=== PATIENT | male | born 1990 | race Caucasian/White ===

== ENCOUNTER 2018-11-12 22:10 | Emergency (ER) | payer OTHER, SELFPAY ==
[2018-11-12 22:10] VITALS: BP 135/75; PULSE 107; RESP 18; TEMP 36.8; O2SAT 98; BMI 33.4
--- NOTE | 2018-11-12 23:46 | ED.RN ---
CALLED CRISIS TO REQUEST THE PATIENT INTAKE REPRESENTATIVE CALL IN TO SPEAK TO DR DALTON
--- NOTE | 2018-11-12 23:48 | ED.DCSUM_ITS ---
- ER Visit Summary Date of Service: 11/12/18 Chief Complaint: Anxious/panic attack and paranoia History of Present Illness: The patient is a 28 M who is a schizophrenic. He recently moved here from [place]. He has a psychiatrist in [place] but has not found physicians here yet. He states that today he began to feel anxious like he was having a panic attack and had some tightness in his chest. He denies any suicidal ideations or homicidal ideations. He states he does feel safe at home. However he does not feel safe at work. He states he has delusions that people want to hurt him. However he shows good insight that these are delusions stating that he has had experience with this and recognizes that it may not be true. Physical Examination: Heart rate 107 vitals otherwise normal Resting comfortably Blunt affect Denies suicidal or homicidal ideation, shows good insight, does have some paranoid ideation Heart regular rhythm slightly tachycardic Lungs are clear Abdomen soft Test Results: Not indicated Emergency Department Course and Treatment: I do not feel the patient meets criteria for involuntary hospitalization at this time. However he does not have any mental health care here. We will contact crisis to arrange for follow-up. Patient discharged. Treatment Plan: [] Disposition: Discharge Impression: Schizophrenia This note was generated with [employer] dictation software. It may contain incorrect words, spelling, and punctuation that were not noted in review of the chart prior to signing ED Disposition - Plan for ED Patient: Referrals: Care Physician,No Primary [Primary Care Provider] -
--- NOTE | 2018-11-12 23:52 | ED.DEP ---
ED Disposition - Plan for ED Patient: Instructions: SCHIZOPHRENIA, General Referrals: Care Physician,No Primary [Primary Care Provider] - Counseling,Center [GROUP OF PHYSICIANS] -
== END 2018-11-13 00:38 | disposition home or self-care (01) ==
PROVIDERS: Emergency Provider Emergency Medicine
DX: F20.9 Schizophrenia, unspecified (principal); K21.9 Gastro-esophageal reflux disease without esophagitis; E03.9 Hypothyroidism, unspecified; Z79.899 Other long term (current) drug therapy
CPT/HCPCS: 99281

== ENCOUNTER 2020-06-13 13:54 | Emergency (ER) | payer OTHER, SELFPAY ==
[2020-06-13 13:54] VITALS: BP 145/88; PULSE 83; RESP 16; TEMP 36.8; O2SAT 97; BMI 33.3
--- NOTE | 2020-06-13 14:06 | CM.ED ---
Social Work Consult: Mental Health Telephone call from Marilynn Canas. Marilynn reports to have spoke with patient briefly in the community and that PD was to call Marilynn back prior to patient being brought to the ED as per Marilynn patient has a baseline of having suicidal thoughts and we can typically safety plan. Plan is for crisis to complete assessment as crisis is familiar with patient. Medical team updated on above. Nan ROGERS, CARLI
--- NOTE | 2020-06-13 14:18 | ED.VISSUMM ---
- ER Visit Summary Date of Service: 06/13/20 Chief Complaint: [Depression and suicidal ideation] History of Present Illness: The patient is a 29 M [presents to the emergency department with police escort. Patient had apparently called the crisis center and then the crisis was unable to get a hold of him again so they called a welfare check to the residence and police was supposed to call the crisis center once they located the patient however police instead brought him to the emergency department. Crisis knows this patient well and apparently deal with them quite frequently. Patient does state that this morning he has had a hard time getting going and was having thoughts that he would be better off if he was not alive any longer. Patient does not have a plan on harming himself. His last psychiatric admission was summer 2018. Patient denies auditory or visual hallucinations. He denies any homicidal ideations. Patient has been compliant with his medications. He does have history of depression, anxiety, and schizoaffective disorder.] Physical Examination: [HEENT-PERRLA, EOMI. Cranial nerves II through XII grossly intact. TMs clear. Mucous membranes moist. No adenopathy. Cardiovascular-regular rate and rhythm without murmur or ectopy Lungs-clear to auscultation, chest wall stable without crepitus or subcu emphysema Abdomen-normoactive bowel sounds, soft, nontender, no rebound or rigidity, no peritoneal signs. Extremities-intact ?4, normal range of motion, normal pulses, atraumatic] Test Results: [None performed] Emergency Department Course and Treatment: [Patient was evaluated by crisis and it was determined that patient currently not acutely suicidal and is willing to contract for safety. He is well-known to the counseling center. They will follow-up with him.] Treatment Plan: [Patient will follow up with counseling center and his psychiatrist.] Disposition: [Discharged] Impression: [Depression] This note was generated with [employer] dictation software. It may contain incorrect words, spelling, and punctuation that were not noted in review of the chart prior to signing ED Disposition - Plan for ED Patient: Referrals: Care Physician,No Primary [NON-STAFF] -
--- NOTE | 2020-06-13 14:32 | ED.RN ---
pt is on the phone with crisis. unable to complete assessment and health screening. dmitry, rn [id number]
--- NOTE | 2020-06-13 15:35 | ED.DEP ---
ED Disposition - Plan for ED Patient: Instructions: ED Depression Referrals: Care Physician,No Primary [NON-STAFF] - 3-5 Days Additional Instructions: Follow up with your psychiatrist
[2020-06-13 16:05] VITALS: BP 140/85; PULSE 88; RESP 14; O2SAT 99
== END 2020-06-13 16:07 | disposition home or self-care (01) ==
LOC: ED 15:31
PROVIDERS: Emergency Provider Emergency Medicine; PCP Family Medicine
DX: F32.9 Major depressive disorder, single episode, unspecified (principal); F25.9 Schizoaffective disorder, unspecified; F41.9 Anxiety disorder, unspecified; E03.9 Hypothyroidism, unspecified; Z79.899 Other long term (current) drug therapy; Z72.0 Tobacco use
CPT/HCPCS: 99282

== ENCOUNTER 2020-08-28 22:16 | Emergency (ER) | payer OTHER, SELFPAY ==
[2020-08-28 22:19] VITALS: BP 139/86; PULSE 100; RESP 20; TEMP 36; O2SAT 99; BMI 32.8
--- NOTE | 2020-08-28 22:20 | ED.RN ---
RN CALLED FOR EKG, NO OLD EKGS IN MUSE
[2020-08-28 22:28] VITALS: PULSE 101; RESP 20; O2SAT 97
--- NOTE | 2020-08-28 22:38 | CT_ITS ---
EXAM: CT ABDOMEN AND PELVIS WITH INTRAVENOUS CONTRAST : 1990 CLINICAL INDICATION: Diffuse abdominal pain TECHNIQUE: Helically acquired images were obtained of the abdomen and pelvis with intravenous contrast. This CT exam was performed using one or more of the following dose reduction techniques: automated exposure control, adjustment of the mA and/or kV according to patient size, and/or use of iterative reconstruction technique. This report was created using [employer] report generation technology. CONTRAST: IV 100mL Isovue-300 COMPARISON: None. FINDINGS: LOWER THORAX: Unremarkable. Lung bases are clear. No cardiomegaly. No significant pericardial effusion. ABDOMEN: LIVER: Unremarkable. Homogeneous. No focal mass. GALLBLADDER AND BILE DUCTS: Unremarkable. No calcified gallstones. No gallbladder distention or wall edema. No intra- or extrahepatic biliary ductal dilation. PANCREAS: Unremarkable. No focal cystic or solid mass. SPLEEN: Unremarkable. Normal size without focal cystic or solid mass. ADRENALS: Unremarkable. No nodules. KIDNEYS AND URETERS: Unremarkable. Normal renal size and position. No hydronephrosis. STOMACH AND BOWEL: There is moderate stool seen throughout the colon may represent constipation. No stomach or bowel distention. No focal inflammatory change. PELVIS: APPENDIX: No evidence of acute appendicitis. BLADDER: Unremarkable. REPRODUCTIVE: Unremarkable as visualized. No mass. ABDOMEN and PELVIS: INTRAPERITONEAL SPACE: Unremarkable. No ascites or other fluid collection. No free air. BONES/JOINTS: Unremarkable. No suspicious lytic or blastic abnormality. SOFT TISSUES: Unremarkable. No discrete abdominal or pelvic wall hernia. VASCULATURE: Unremarkable. Abdominal aorta is non-dilated. LYMPH NODES: Unremarkable. No enlarged lymph nodes. CT/Abdomen/Pelvis W IV Cont ONLY IMPRESSION: Moderate stool throughout the colon may represent constipation. No other abnormalities identified. Individualized dose optimization techniques were used for this CT. at 0113 Reported and signed by: Jan Zhang MD Electronically Signed: Jan Zhang MD at 1:11 EDT Tel , Service support ,
--- NOTE | 2020-08-28 22:44 | EDS_ITS ---
HPI History of Present Illness Chief Complaint: Chest Pain Narrative Narrative: Patient is a 29-year-old male with a past medical history of schizoaffective disorder, anxiety who presents to the emergency department for abdominal pain and constipation. He states that this is been ongoing issue over the past 2 to 3 weeks. He was discharged from [facility] yesterday. He is currently residing at the [facility]. He currently rates his abdominal pain is a 5 out of 10. His whole entire abdomen hurts. No one spot hurts worse than another. No radiation of the pain into his back, chest. He initially told the nurse that he was having chest pain so an EKG was performed. Patient denying any chest pain to myself. Denies any shortness of breath. No fevers or chills. He states he was nauseous earlier today but never vomited. He states he is straining to have bowel movements. He is having some bright red blood with the stool. He was placed on MiraLAX and has been compliant with this. No previous abdominal surgeries. Patient otherwise does not know aggravating or relieving factors to his pain. [facility] Medical History (Updated 08/29/20 @ 01:[address] Dino Hubbard, ) Anxiety Depression Schizoaffective disorder Home Medications clonazepam 0.5 mg PO BID 11/12/18 [History Last Taken Unknown] ergocalciferol (vitamin D2) 50,000 unit PO QWEEK 11/12/18 [History Last Taken Unknown] levothyroxine 25 mcg PO DAILY 11/12/18 [History Last Taken Unknown] omeprazole magnesium 20 mg PO DAILY 11/12/18 [History Last Taken Unknown] prazosin 2 mg PO QHS 11/12/18 [History Last Taken Unknown] sertraline 200 mg PO DAILY 11/12/18 [History Last Taken Unknown] ziprasidone HCl 80 mg PO TID 11/12/18 [History Last Taken Unknown] hydroxyzine pamoate 50 mg PO TID PRN PRN 06/13/20 [History Last Taken Unknown] docusate sodium [Colace] 100 mg PO BID #20 cap 08/29/20 [Rx Last Taken Unknown] sodium phosphates [Fleet Enema] 118 ml VT DAILY 1 Days #133 ml 08/29/20 [Rx Last Taken Unknown] Allergy/AdvReac Type Severity Reaction Status Date / Time No Known Allergies Allergy Verified 08/28/20 22:18 Social History Smoking Status: Never smoker ROS ROS ED Constitutional Constitutional ED: Denies chills or fever(s) Eyes Eyes: Denies change in vision ENT ENT ED: Denies epistaxis or rhinorrhea Cardiovascular Cardiovascular: Denies chest pain or palpitations Respiratory/Chest Respiratory/Chest: Denies cough, dyspnea or dyspnea on exertion Gastrointestinal Gastrointestinal: Reports abdominal pain, constipation and nausea; Denies d iarrhea, melena or vomiting Genitourinary Genitourinary ED: Denies dysuria, hematuria or urinary frequency Musculoskeletal Musculoskeletal: Denies back pain or neck pain Integumentary Denies rash Neurologic Neurologic: Denies dizziness, headache(s) or weakness EXAM Physical Exam Const Vital Signs: 08/28/20 22:19 08/28/20 22:22 08/28/20 22:28 Temperature 96.8 F L Temperature Source Temporal Pulse Rate 100 101 H Respiratory Rate 20 H 20 H Respiratory Effort Normal Non-Labored Respiratory Pattern Normal Blood Pressure 139/86 H Blood Pressure Mean 103 Pulse Ox 99 97 Oxygen Delivery Method Room Air Room Air 08/29/20 00:14 08/29/20 01:02 08/29/20 01:40 Temperature Temperature Source Pulse Rate 86 90 93 Respiratory Rate 16 22 H 18 Respiratory Effort Respiratory Pattern Blood Pressure 120/67 121/80 H 135/97 H Blood Pressure Mean 84 93 Pulse Ox 96 97 96 Oxygen Delivery Method Room Air Room Air Positive well nourished and well developed General Appearance ED: well developed and NAD HEENT Reports normocephalic, head/scalp atraumatic and moist mucous membranes Eyes PERRL and EOMs intact bilaterally Neck no lymphadenopathy and supple General: Negative for tenderness Chest Wall inspection of chest normal Resp normal respiratory effort and clear to auscultation bilaterally Auscultation: Negative for rales, rhonchi or wheezes Cardio regular rate, regular rhythm and no murmurs GI normal to inspection, nondistended, normoactive bowel sounds Palpation: soft and tender other (Diffuse, patient has no grimacing with deep palpation.); Negative for guarding or rebound tenderness present Back/Spine no CVA tenderness Extremity normal to inspection General Extremety ED: Negative for edema or tenderness General Extremity: Negative for edema Neuro oriented x3, CN's II-XII intact bilaterally and no sensory deficits noted Sensorium / Orientation: alert Motor Exam: strength 5/5 throughout Psych Appearance: other Flat affect Skin no rashes or lesions noted MDM MDM MDM Narrative Medical decision making narrative: Patient presents to the ED for diffuse abdominal pain and constipation. Patient has been taking MiraLAX which has not been giving him significant relief. Vital signs are within normal limits upon arrival to the ED. He is afebrile. He has a benign abdominal exam with mild tenderness diffusely. Given his prolonged symptoms we will check basic lab work and imaging. Patient's lab work did not reveal any significant acute abnormality. His troponin is within normal limits. He does not have an elevated white blood cell count. Liver enzymes within normal limits. CT scan did show constipation but no obvious obstruction. I did offer disimpaction but patient would prefer to do a enema at home. We'll write a prescription for this. I will add Colace to take along with his MiraLAX as well. At this time patient is stable for discharge. Again he has been asymptomatic without having any chest pain or shortness of breath. I believe his EKG was showing J-point elevation. Lab Data Labs: Laboratory Results - last 24 hr 08/28/20 08/28/20 08/29/20 22:22 22:22 01:15 WBC 5.5 RBC 5.45 Hgb 15.0 Hct 45.1 MCV 82.8 MCH 27.5 MCHC 33.3 RDW Std Deviation 50.4 H RDW Coeff of Lissette 16.8 H Plt Count 185 MPV 9.6 Immature Gran % (Auto) 0.200 Neut % (Auto) 65.5 Lymph % (Auto) 23.3 Peach % (Auto) 9.3 Eos % (Auto) 1.3 Baso % (Auto) 0.4 Absolute Neuts (auto) 3.6 Absolute Lymphs (auto) 1.28 Nucleated RBC % 0 Sodium 140 Potassium 3.6 Chloride 108 H Carbon Dioxide 26.0 Anion Gap 6 BUN 11 Creatinine 0.95 Estim Creat Clear Calc 113.00 Est GFR (MDRD) Af Amer 122 Est GFR (MDRD) Non-Af 101 BUN/Creatinine Ratio 11.6 Glucose 113 H Calcium 9.1 Total Bilirubin 0.30 AST 8 L ALT 23 Alkaline Phosphatase 84 Troponin I < 0.015 Total Protein 7.2 Albumin 3.7 Globulin 3.5 Albumin/Globulin Ratio 1.1 Lipase 122 Urine Color Yellow Urine Clarity Clear Urine pH 6.5 Ur Specific [place] 1.015 Urine Protein 15 H Urine Glucose (UA) Normal Urine Ketones Negative Urine Occult Blood Negative Urine Nitrite Negative Urine Bilirubin Negative Urine Urobilinogen 1 H Ur Leukocyte Esterase Negative Urine RBC 0 SEEN Urine WBC 0 SEEN Ur Squamous Epith Cells 0 SEEN Urine Bacteria 0 SEEN Urine Mucus 0 SEEN Radiography Diagnostic Testing: Radiology Impression Abdomen/Pelvis CT 08/28/20 22:38 IMPRESSION: Moderate stool throughout the colon may represent constipation. No other abnormalities identified. Individualized dose optimization techniques were used for this CT. at 0113 Reported and signed by: Jan Zhang MD Electronically Signed: Jan Zhang MD at 1:11 EDT Tel , Service support , EKG Initial EKG: Attestation: I personally reviewed and interpreted this EKG as follows: Comments: Rate of 102 bpm and a sinus tachycardia. He does have some ST elevations in the inferior leads especially 2 and aVF. He has minimal ST elevation in V6. No reciprocal depressions. Patient is denying any chest pain at this time. Discharge Plan Triage Chief Complaint: Chest Pain Other Complaint: Nausea/Vomiting ED Provider: Dino Hubbard Dx/Rx/DC Orders Clinical Impression: Constipation, Abdominal pain Instructions: ED Constipation (Adult) Prescriptions: New docusate sodium [Colace] 100 mg capsule 100 mg PO BID Qty: 20 RF: 0 Fleet Enema 19-7 gram/118 mL enema 118 ml VT DAILY 1 Days Qty: 133 RF: 1 No Action clonazepam 0.5 MG tablet 0.5 mg PO BID RF: 0 sertraline 100 MG tablet 200 mg PO DAILY RF: 0 levothyroxine 25 MCG tablet 25 mcg PO DAILY RF: 0 ergocalciferol (vitamin D2) 50,000 UNIT capsule 50,000 unit PO QWEEK RF: 0 ziprasidone HCl 60 MG capsule 80 mg PO TID RF: 0 prazosin 2 MG capsule 2 mg PO QHS RF: 0 omeprazole magnesium 20 MG tablet,delayed release (DR/EC) 20 mg PO DAILY RF: 0 hydroxyzine pamoate 25 MG capsule 50 mg PO TID PRN PRN (Reason: Anxiety) RF: 0 Primary Care Provider: Mark Hanna Referrals: Mark Hanna DO [Primary Care Provider] - 3-5 Days if not improving Disposition Disposition: Home, self care Discharge Date/Time: 08/29/20 01:43
[2020-08-28 22:48] LABS: Absolute Lymphocyte Count 1.28 X10^3/uL (0.83-4.51); Absolute Neutrophil Count 3.6 X10^3/uL (2.0-7.7); Basophil# 0.02 X10^3/uL; Basophil% 0.4 % (0-1); Eosinophil# 0.07 X10^3/uL; Eosinophils% 1.3 % (0-5); Hematocrit 45.1 % (40-54); Lymphocyte # 1.28 X10^3/ul (0.83-4.51); Lymphocyte % 23.3 % (19-41); Mean Corp Hgb Conc 33.3 g/dL (32-36); Mean Corpuscular Hgb 27.5 pg (27.0-32.0); Mean Corpuscular Volume 82.8 fL (80-94); Mean Platelet Vol. 9.6 fl (6.2-12.0); Monocyte# 0.51 X10^3/uL; Monocyte% 9.3 % (0-10); NRBC Flagged by Analyzer 0 % (0-5); Neutrophil % 65.5 % (47-70); Platelet Count 185 K/mm3 (150-450); RBC Distribution Width CV 16.8 % (11.6-14.6); RBC Distribution Width SD 50.4 fl (35.1-43.9); Red Blood Count 5.45 M/mm3 (4.6-6.2); White Blood Count 5.5 K/mm3 (4.4-11.0)
[2020-08-28 23:03] LABS: ALB/GLOB Ratio 1.1 RATIO (0.9-2.4); AST(SGOT) 8 U/L (15-37); Alanine Aminotransfer ALT/SGPT 23 U/L (16-61); Albumin, Serum 3.7 g/dL (3.2-5.0); Alkaline Phosphatase 84 U/L (45-117); Anion Gap 6 (5-15); BUN 11 mg/dL (7-18); BUN/Creat Ratio 11.6 RATIO (10-20); Calcium,Total 9.1 mg/dL (8.5-10.1); Chloride 108 mmol/L (98-107); Creatinine, Serum 0.95 mg/dL (0.70-1.30); EST Glomerular Filtration Rate 101 mL/min (>60); Est Glom Filt Rate - Afr Amer 122 mL/min (>60); Globulin 3.5 g/dL (2.2-4.2); Glucose 113 mg/dL (74-106); Lipase 122 U/L (73-393); Potassium 3.6 mmol/L (3.5-5.1); Protein, Total 7.2 g/dL (6.4-8.2); Sodium Level 140 mmol/L (136-145)
--- NOTE | 2020-08-28 23:19 | EKG12_ITS ---
Test Reason : CP/NV Blood Pressure : / mmHG Vent. Rate : 102 BPM Atrial Rate : 102 BPM P-R Int : 168 ms QRS Dur : 098 ms QT Int : 334 ms P-R-T Axes : 033 066 026 degrees QTc Int : [address]-Segment Abnormality:Consider Myocardial Injury or Pericarditis Abnormal ECG Confirmed by DWAIN LORENZ, HELEN ([id number]), editor greeting card NOEMI AUSTIN ([id number]) on 09/01/2020 10:51:52 AM Referred By: JAIMEE Confirmed By:HELEN PRAKASH MD
[2020-08-29 00:14] VITALS: BP 120/67; PULSE 86; RESP 16; O2SAT 96
[2020-08-29 01:02] VITALS: BP 121/80; PULSE 90; RESP 22; O2SAT 97
[2020-08-29 01:20] LABS: Bacteria 0 SEEN /hpf (None Seen); Color, Urine Yellow (Yellow); Glucose, Dipstick Normal (Normal); Ketone-Dipstick Negative (Negative); Leukocyte Esterase-Dipstick Negative /ul (Negative); Mucous, Urine 0 SEEN /hpf (<or=2+); Nitrite-Dipstick Negative (Negative); Occult Blood-Urine Negative /ul (Negative); Protein-Dipstick 15 mg/dl (Negative); Red Blood Cells-Urine 0 SEEN /hpf (0-5); Specific Gravity, Urine 1.015 (1.002-1.030); Squamous Epithelial Cells - UA 0 SEEN /hpf (0-5); Urine Bilirubin Dipstick Negative (Negative); Urine Clarity Clear (Clear); Urine Urobilinogen 1 mg/dl (Normal); Urine pH 6.5 (5.0 - 8.0); White Blood Cells 0 SEEN /hpf (0-5)
[2020-08-29 01:40] VITALS: BP 135/97; PULSE 93; RESP 18; O2SAT 96
== END 2020-08-29 01:43 | disposition home or self-care (01) ==
PROVIDERS: Emergency Provider Emergency Medicine; PCP Family Medicine
DX: K59.00 Constipation, unspecified (principal); F25.9 Schizoaffective disorder, unspecified; F32.9 Major depressive disorder, single episode, unspecified; F41.9 Anxiety disorder, unspecified; Z79.899 Other long term (current) drug therapy
CPT/HCPCS: 74177; 80053; 81001; 83690; 84484; 85025; 93005; 99285; Q9967; A4216

== ENCOUNTER 2020-08-29 19:54 | Emergency (ER) | payer OTHER, SELFPAY ==
[2020-08-28 22:19] VITALS: BMI 32.8
[2020-08-29 19:54] VITALS: BP 150/76; PULSE 111; RESP 16; TEMP 37; O2SAT 100; BMI 31.7
--- NOTE | 2020-08-29 20:42 | EDS_ITS ---
HPI History of Present Illness Chief Complaint: Constipation Informant: patient Narrative Narrative: Patient is brought to the hospital via EMS [facility] for the chief complaint of constipation. Patient was seen last night and had an evaluation was given prescriptions for Colace and a fleets enema. He declined disimpaction. Patient states he did not go pickle maker the prescriptions because he did not know if he can call a taxi and go pick them up. I asked why and he states because of operation 622. I stated what was that he tells me that is what led him to go to [facility] which led him to be transferred to a psychiatric facility in [place] where he stayed for the past several weeks and then was at [facility]. He is tells me that he has family in [place] but his case supervisor stated that he needed to stay [facility] before going to stay with them. He notes continued abdominal cramping. He has been passing flatus. He states that it has been several days since his last bowel movement. [facility] Medical History Anxiety Depression Schizoaffective disorder Home Medications clonazepam 0.5 mg PO BID 11/12/18 [History Last Taken Unknown] ergocalciferol (vitamin D2) 50,000 unit PO QWEEK 11/12/18 [History Last Taken Unknown] levothyroxine 25 mcg PO DAILY 11/12/18 [History Last Taken Unknown] omeprazole magnesium 20 mg PO DAILY 11/12/18 [History Last Taken Unknown] prazosin 2 mg PO QHS 11/12/18 [History Last Taken Unknown] sertraline 200 mg PO DAILY 11/12/18 [History Last Taken Unknown] ziprasidone HCl 80 mg PO TID 11/12/18 [History Last Taken Unknown] hydroxyzine pamoate 50 mg PO TID PRN PRN 06/13/20 [History Last Taken Unknown] docusate sodium [Colace] 100 mg PO BID #20 cap 08/29/20 [Rx Last Taken Unknown] sodium phosphates [Fleet Enema] 118 ml IN DAILY 1 Days #133 ml 08/29/20 [Rx Last Taken Unknown] docusate sodium [Colace] 100 mg PO DAILY #30 cap 08/30/20 [Rx Last Taken Unknown] magnesium citrate 300 ml PO X1 #1 bottle 08/30/20 [Rx Last Taken Unknown] Allergy/AdvReac Type Severity Reaction Status Date / Time No Known Allergies Allergy Verified 08/29/20 19:57 no surgical history (Noncontributory) Social History (Updated 08/29/20 @ 20:[address] Adam Padron, DO) housing: other details: Currently staying at [facility] Smoking Status: Current every day smoker ROS ROS ED Constitutional Constitutional ED: Denies chills or weight loss Eyes Eyes: Denies change in vision or diplopia ENT ENT ED: Denies ear pain, rhinorrhea or sore throat Cardiovascular Cardiovascular: Denies chest pain, orthopnea, palpitations or racing heartbeat Respiratory/Chest Respiratory/Chest: Denies cough, dyspnea or orthopnea Gastrointestinal Gastrointestinal: Reports abdominal pain and constipation; Denies diarrhea, nausea or vomiting Genitourinary Genitourinary ED: Denies dysuria, hematuria or urinary frequency Musculoskeletal Musculoskeletal: Denies arthralgias or myalgias Integumentary Denies abscess or rash Neurologic Neurologic: Denies headache(s) or weakness Psychiatric Psychiatric: Denies anxiety, depression, suicidal ideation or suicidal thoughts Endocrine Endocrinology: Denies polydipsia, polyphagia or polyuria Allergic/Immunologic Allergic/Immunologic ED: Denies mouth swelling, tongue swelling or urticaria EXAM Physical Exam Const Vital Signs: 08/29/20 19:54 08/30/20 00:06 Temperature 98.6 F Temperature Source Oral Pulse Rate 111 H Respiratory Rate 16 18 Blood Pressure 150/76 H Blood Pressure Mean 100 Pulse Ox 100 Positive well nourished and well developed General Appearance ED: well developed HEENT Reports normocephalic, head/scalp atraumatic and moist mucous membranes Eyes PERRL and EOMs intact bilaterally Neck no lymphadenopathy, supple and no JVD Resp normal respiratory effort and clear to auscultation bilaterally Cardio regular rate, regular rhythm and no murmurs GI normal to inspection, nondistended, normoactive bowel sounds and non-tender Palpation: soft Back/Spine no CVA tenderness and normal ROM Extremity normal to inspection General Extremety ED: Negative for edema General Extremity: Negative for edema Neuro oriented x3 and CN's II-XII intact bilaterally Sensorium / Orientation: alert Motor Exam: strength 5/5 throughout Psych mental status grossly normal Appearance: other Patient has blunted affect. Patient denies suicidal homicidal ideation. Mood & Affect: Negative for depressed or tearful Skin no rashes or lesions noted and no wounds MDM MDM MDM Narrative Medical decision making narrative: I spoke with crisis because I was concerned about the patient. What he was telling me was not making much sense. Since they have his information and are his immigration case worker wanted them to speak with him. In the interim I obtain psychiatric screening labs so that they could speak with him at their request. He also received a bottle of magnesium citrate and had a bowel movement while he was in the department. At this point disposition is pending if crisis does not feel the patient needs to be admitted psychiatrically think it would be okay to discharge him. He has an appointment with his case supervisor on Monday. Lab Data Attestation: I reviewed the patient's lab results. Labs: Laboratory Results - last 24 hr 08/29/20 08/29/20 08/29/20 21:05 21:05 21:05 WBC 5.8 RBC 5.47 Hgb 14.9 Hct 44.8 MCV 81.9 MCH 27.2 MCHC 33.3 RDW Std Deviation 49.3 H RDW Coeff of Lissette 16.7 H Plt Count 192 MPV 9.4 Immature Gran % (Auto) 0.200 Neut % (Auto) 69.5 Lymph % (Auto) 19.9 [place] % (Auto) 8.7 Eos % (Auto) 1.4 Baso % (Auto) 0.3 Absolute Neuts (auto) 4.1 Absolute Lymphs (auto) 1.16 Nucleated RBC % 0 Sodium 140 Potassium 3.5 Chloride 110 H Carbon Dioxide 24.0 Anion Gap 6 BUN 8 Creatinine 0.76 Estim Creat Clear Calc 141.25 Est GFR (MDRD) Af Amer 158 Est GFR (MDRD) Non-Af 130 BUN/Creatinine Ratio 10.6 Glucose 111 H Calcium 8.9 Total Bilirubin 0.30 AST 10 L ALT 23 Alkaline Phosphatase 91 Total Protein 7.2 Albumin 3.7 Globulin 3.5 Albumin/Globulin Ratio 1.1 Urine Opiates Screen Urine Methadone Screen Ur Barbiturates Screen Ur Phencyclidine Scrn Ur Amphetamines Screen U Methamphetamin-MDMA U Benzodiazepines Scrn Urine Cocaine Screen U Cannabinoids Screen Ur Drug Screen Comment Ethyl Alcohol 5.0 08/29/20 22:30 WBC RBC Hgb Hct MCV MCH MCHC RDW Std Deviation RDW Coeff of Lissette Plt Count MPV Immature Gran % (Auto) Neut % (Auto) Lymph % (Auto) [place] % (Auto) Eos % (Auto) Baso % (Auto) Absolute Neuts (auto) Absolute Lymphs (auto) Nucleated RBC % Sodium Potassium Chloride Carbon Dioxide Anion Gap BUN Creatinine Estim Creat Clear Calc Est GFR (MDRD) Af Amer Est GFR (MDRD) Non-Af BUN/Creatinine Ratio Glucose Calcium Total Bilirubin AST ALT Alkaline Phosphatase Total Protein Albumin Globulin Albumin/Globulin Ratio Urine Opiates Screen NEGATIVE Urine Methadone Screen NEGATIVE Ur Barbiturates Screen NEGATIVE Ur Phencyclidine Scrn NEGATIVE Ur Amphetamines Screen NEGATIVE U Methamphetamin-MDMA NEGATIVE U Benzodiazepines Scrn NEGATIVE Urine Cocaine Screen NEGATIVE U Cannabinoids Screen NEGATIVE Ur Drug Screen Comment Ethyl Alcohol EKG Initial EKG: Attestation: I personally reviewed and interpreted this EKG as follows: Comments: EKG demonstrates a sinus tachycardia at a rate of 106. Early repolarization changes noted. Discharge Plan Triage Chief Complaint: Constipation ED Provider: Adam Padron Dx/Rx/DC Orders Clinical Impression: Constipation, Schizophrenia Instructions: ED Constipation (Adult) Prescriptions: New docusate sodium [Colace] 100 mg capsule 100 mg PO DAILY Qty: 30 RF: 0 magnesium citrate Solution 300 ml PO X1 Qty: 1 RF: 0 No Action clonazepam 0.5 MG tablet 0.5 mg PO BID RF: 0 sertraline 100 MG tablet 200 mg PO DAILY RF: 0 levothyroxine 25 MCG tablet 25 mcg PO DAILY RF: 0 ergocalciferol (vitamin D2) 50,000 UNIT capsule 50,000 unit PO QWEEK RF: 0 ziprasidone HCl 60 MG capsule 80 mg PO TID RF: 0 prazosin 2 MG capsule 2 mg PO QHS RF: 0 omeprazole magnesium 20 MG tablet,delayed release (DR/EC) 20 mg PO DAILY RF: 0 hydroxyzine pamoate 25 MG capsule 50 mg PO TID PRN PRN (Reason: Anxiety) RF: 0 docusate sodium [Colace] 100 mg capsule 100 mg PO BID Qty: 20 RF: 0 Fleet Enema 19-7 gram/118 mL enema 118 ml IN DAILY 1 Days Qty: 133 RF: 1 Primary Care Provider: Mark Hanna Referrals: Mark Hanna, DO [Primary Care Provider] - As soon as possible Disposition Disposition: Home, self care
--- NOTE | 2020-08-29 20:42 | EKG12_ITS ---
Test Reason : CONSTIPATION Blood Pressure : / mmHG Vent. Rate : 106 BPM Atrial Rate : 106 BPM P-R Int : 180 ms QRS Dur : 098 ms QT Int : 322 ms P-R-T Axes : 041 089 027 degrees QTc Int : [address]-Segment Abnormality: Consider Myocardial Injury or Pericarditis Confirmed by DWAIN LORENZ, HELEN ([id number]), general expeditor NOEMI AUSTIN ([id number]) on 09/01/2020 10:52:30 AM Referred By: Confirmed By:HELEN PRAKASH MD
[2020-08-29] MEDS: Magnesium Citrate 300 ML PO (21:11)
[2020-08-29 21:14] LABS: Absolute Lymphocyte Count 1.16 X10^3/uL (0.83-4.51); Absolute Neutrophil Count 4.1 X10^3/uL (2.0-7.7); Basophil# 0.02 X10^3/uL; Basophil% 0.3 % (0-1); Eosinophil# 0.08 X10^3/uL; Eosinophils% 1.4 % (0-5); Hematocrit 44.8 % (40-54); Hemoglobin 14.9 g/dL (13.0-16.5); Lymphocyte # 1.16 X10^3/ul (0.83-4.51); Lymphocyte % 19.9 % (19-41); Mean Corp Hgb Conc 33.3 g/dL (32-36); Mean Corpuscular Hgb 27.2 pg (27.0-32.0); Mean Corpuscular Volume 81.9 fL (80-94); Mean Platelet Vol. 9.4 fl (6.2-12.0); Monocyte# 0.51 X10^3/uL; Monocyte% 8.7 % (0-10); NRBC Flagged by Analyzer 0 % (0-5); Neutrophil # 4.05 X10^3/uL (2.7-7.7); Neutrophil % 69.5 % (47-70); Platelet Count 192 K/mm3 (150-450); RBC Distribution Width CV 16.7 % (11.6-14.6); RBC Distribution Width SD 49.3 fl (35.1-43.9); Red Blood Count 5.47 M/mm3 (4.6-6.2); White Blood Count 5.8 K/mm3 (4.4-11.0)
[2020-08-29 21:31] LABS: ALB/GLOB Ratio 1.1 RATIO (0.9-2.4); AST(SGOT) 10 U/L (15-37); Alanine Aminotransfer ALT/SGPT 23 U/L (16-61); Albumin, Serum 3.7 g/dL (3.2-5.0); Alkaline Phosphatase 91 U/L (45-117); Anion Gap 6 (5-15); BUN 8 mg/dL (7-18); BUN/Creat Ratio 10.6 RATIO (10-20); Calcium,Total 8.9 mg/dL (8.5-10.1); Chloride 110 mmol/L (98-107); Creatinine, Serum 0.76 mg/dL (0.70-1.30); EST Glomerular Filtration Rate 130 mL/min (>60); Est Glom Filt Rate - Afr Amer 158 mL/min (>60); Estimated Creatinine Clearance 141.25 ml/min; Globulin 3.5 g/dL (2.2-4.2); Glucose 111 mg/dL (74-106); Potassium 3.5 mmol/L (3.5-5.1); Protein, Total 7.2 g/dL (6.4-8.2); Sodium Level 140 mmol/L (136-145)
[2020-08-29] MEDS: Ibuprofen 600 MG Tablet PO (22:25)
[2020-08-29 22:50] LABS: Amphetamine Urine VISTA NEGATIVE (<1000 ng/mL); Barbiturate Urine VISTA NEGATIVE (< 200 ng/mL); Benzodiazepine Urine VISTA NEGATIVE (< 200 ng/mL); Cocaine Urine VISTA NEGATIVE (< 300 ng/mL); Ecstacy Urine VISTA NEGATIVE (< 500 ng/mL); Methadone Urine VISTA NEGATIVE (< 300 ng/mL); PCP Urine VISTA NEGATIVE (< 25 ng/mL); THC Urine VISTA NEGATIVE (< 50 ng/mL); Vista UDS pH Range 6
[2020-08-30 00:06] VITALS: RESP 18
== END 2020-08-30 00:43 | disposition home or self-care (01) ==
PROVIDERS: Emergency Provider Emergency Medicine; PCP Family Medicine
DX: K59.00 Constipation, unspecified (principal); F25.9 Schizoaffective disorder, unspecified; F32.9 Major depressive disorder, single episode, unspecified; F41.9 Anxiety disorder, unspecified; Z79.899 Other long term (current) drug therapy; F17.200 Nicotine dependence, unspecified, uncomplicated
CPT/HCPCS: 80053; 80307; 82077; 85025; 93005; 99285

== ENCOUNTER → 2022-03-07 | Outpatient (CLI) | payer OTHER, SELFPAY ==
[2022-03-07 12:13] LABS: Mean Corp Hgb Conc 35.6 g/dL (32-36); Mean Corpuscular Hgb 31.3 pg (27.0-32.0); Mean Corpuscular Volume 87.9 fL (80-94); Mean Platelet Vol. 8.9 fl (6.2-12.0); Platelet Count 151 K/mm3 (150-450); RBC Distribution Width CV 13.2 % (11.6-14.6); RBC Distribution Width SD 42.7 fl (35.1-43.9); Red Blood Count 5.12 M/mm3 (4.6-6.2); White Blood Count 4.2 K/mm3 (4.4-11.0)
[2022-03-07 12:26] LABS: Vitamin B12 > 2000 pg/mL (211-911); Vitamin D,25 Hydroxy 39.8 ng/mL
[2022-03-07 12:30] LABS: Hemoglobin A1c 5.3 % (3.8-5.6)
[2022-03-07 12:32] LABS: ALB/GLOB Ratio 1.1 RATIO (0.9-2.4); AST(SGOT) 25 U/L (15-37); Alanine Aminotransfer ALT/SGPT 51 U/L (16-61); Albumin, Serum 3.7 g/dL (3.2-5.0); Alkaline Phosphatase 84 U/L (45-117); Anion Gap 4 (5-15); BUN 14 mg/dL (7-18); BUN/Creat Ratio 14.5 RATIO (10-20); Calcium,Total 9.2 mg/dL (8.5-10.1); Chloride 108 mmol/L (98-107); Creatinine, Serum 0.97 mg/dL (0.70-1.30); EST Glomerular Filtration Rate 97 mL/min (>60); Est Glom Filt Rate - Afr Amer 118 mL/min (>60); Globulin 3.4 g/dL (2.2-4.2); Glucose 123 mg/dL (74-106); Potassium 3.8 mmol/L (3.5-5.1); Protein, Total 7.1 g/dL (6.4-8.2); Sodium Level 139 mmol/L (136-145); Thyroid Stim Hormone (TSH) 2.27 uIU/mL (0.358-3.74)
== END | disposition home or self-care (01) ==
LOC: BIMLAB 10:03
PROVIDERS: PCP Family Medicine; Referring Provider Counselor Mental Health; Visit Provider Counselor Mental Health
DX: Z79.899 Other long term (current) drug therapy (principal)
CPT/HCPCS: 36415; 80053; 82306; 82607; 83036; 84443; 85027

== ENCOUNTER 2025-02-28 09:09 | Outpatient (CLI) | payer OTHER, SELFPAY ==
[2025-02-28 10:11] LABS: Hematocrit 44.2 % (40-54); Hemoglobin 16.0 g/dL (13.0-16.5); Immature Granulocytes Count 0.030 X10^3/uL (0.0-0.0); Mean Corp Hgb Conc 36.2 g/dL (32-36); Mean Corpuscular Volume 83.9 fL (80-94); Mean Platelet Vol. 8.5 fl (6.2-12.0); NRBC Flagged by Analyzer 0 % (0-5); Platelet Count 143 K/mm3 (150-450); RBC Distribution Width CV 13.5 % (11.6-14.6); RBC Distribution Width SD 41.2 fl (35.1-43.9); Red Blood Count 5.27 M/mm3 (4.6-6.2); White Blood Count 4.5 K/mm3 (4.4-11.0)
[2025-02-28 11:08] LABS: FOLATES,SERUM (FOLIC ACID) 9.23 ng/mL (4.60-34.80)
[2025-02-28 11:29] LABS: AST(SGOT) 27 U/L (<=37); Alanine Aminotransfer ALT/SGPT 45 U/L (<=46); Albumin, Serum 4.5 g/dL (3.5-5.0); Alkaline Phosphatase 90 U/L (40-129); Anion Gap 11 (5-15); BUN 15 mg/dL (4-19); BUN/Creat Ratio 15.2 RATIO (10-20); Bilirubin, Direct 0.20 mg/dL (0.00-0.30); Calcium,Total 9.8 mg/dL (7.6-11.0); Carbon Dioxide 22.2 mmol/L (21.0-32.0); Chloride 106 mmol/L (98-108); Cholesterol 151 mg/dL (<=200); Globulin 3.0 g/dL (2.2-4.2); Glucose 96 mg/dL (70-99); Low Density Lipoprotein Calc. 100 mg/dL; Potassium 4.2 mmol/L (3.3-5.1); Triglycerides 117 mg/dL; Very Low Density Lipoprotein 23 mg/dL (5-40); Vitamin B12 1095 pg/mL (180-914); Vitamin D,25 Hydroxy 30.1 ng/mL (30-100); cholesterol:hdl ratio screen 5.14
== END 2025-02-28 23:59 | disposition home or self-care (01) ==
LOC: LAB 09:18
PROVIDERS: PCP Nurse Practitioner Family
DX: Z79.899 Other long term (current) drug therapy (principal)
CPT/HCPCS: 36415; 80053; 80061; 82248; 82306; 82607; 82746; 83036; 85025